=== PATIENT | male | born 1960 | race Two or more races ===

== ENCOUNTER 2018-06-03 12:01 | Day surgery (SDC) | payer OTHER ==
[2018-06-03] MEDS ORDERED: ZOFRAN ODT4 MG PO (16:18)
[2018-06-03] MEDS ORDERED: TRAMADOL HCL50 MG PO (16:18)
[2018-06-03] MEDS ORDERED: NEURONTIN300 MG PO (16:18)
[2018-06-03] MEDS ORDERED: TYLENOL EXTRA500 MG PO (16:18)
[2018-06-03] MEDS ORDERED: MIRALAX17 GM PO (16:18)
== END 2018-06-03 17:59 | disposition home or self-care (01) ==
LOC: CIR.AMB 12:01
DX: K40.91 Unilateral inguinal hernia, without obstruction or gangrene, recurrent (principal); K42.9 Umbilical hernia without obstruction or gangrene